=== PATIENT | female | born 1960 | race Caucasian/White ===

== ENCOUNTER 2022-10-12 08:00 | Outpatient (AMB) | payer BC, SELFPAY ==
--- NOTE | 2022-10-12 08:10 | MHC.OFFVIS ---
Intake Vital Signs 10/12/22 08:11 Height 5 ft 6 in Weight 155 lb 8 oz BMI 25.1 BP 130/90 H Blood Pressure Location Rt brachial Position Sitting Pulse 96 Pulse Source Pulse Oximeter Pulse Oximetry (%) 99 Oxygen Delivery Method Room Air Intake Visit Reasons: NPV-Essential Tremor-lvm Intake Note: Pt presents to the office today for a NPV for tremors. Pt states she has a tremor in her right thumb. She states she saw a neurologist in 2021 and states she was diagnosed with Parkinsons. Pt states she improved without medications and then had a Malu scan which was negative for parkinsons so she is here to get a second opinion. She states her tremor comes and goes. She states it can be gone for a few weeks and then sometimes happen for a week at a time. Allergies hydrochlorothiazide Allergy (Unknown, Verified 10/12/22 08:13) Unknown itraconazole [From Sporanox] Allergy (Unknown, Verified 10/12/22 08:13) Unknown tramadol [From Ultram] Allergy (Unknown, Verified 10/12/22 08:13) Unknown Medication List - Last Reconciled 10/12/22 by Meka Amin MD amlodipine 10 mg PO DAILY losartan 50 mg PO DAILY HPI HPI Comments History of Present Illness Details 62y/o right handed female comes for evaluation of tremors. SHe started noticing tremors in her right thumb in July 2020.It is intermittent and mild and she has not noticed any worsening. The tremors are always at rest. She feels like her right hand is stiffer. she had carpal tunnel release in both hands and has not completely resolved. Her hand writing has worsened. No change in speech or drooling. No difficulty in using utensils, dressing, showering. No change in gait. No balance issues. She has some word finding difficulty SHe has fh/o dementia - brother 76 with dementia ( alcoholic) sister has bipolar, mother with dementia. Her sleep has worsened, due to neck issues . No acting out dreams .she has snoring, difficulty falling asleep and staying asleep , daytime sleepiness. She has mild depression on medications.she is motivated. No hallucinations. No difficulty turning in bed.she has trouble with her vision she has h/o migraines and has 1 migraine /month lasting 5 days. she had MRI brain which showed some white matter changes. MALU scan negative as per Dr. Barclay note. [facility] Medical History Cervicalgia Coarse tremors Depression HTN (hypertension) Hyperlipidemia Insomnia Snoring Surgical History History of ankle surgery History of fusion of cervical spine History of knee surgery History of partial hysterectomy Hx of partial nephrectomy Family History Father Alcoholism Myocardial infarction Bipolar disorder Brother Alcoholism Sister Bipolar 1 disorder Social History Household Members: Spouse Housing: House Alcohol intake: current Alcohol intake frequency: a few times a week Alcohol type: wine and hard liquor Patient Tobacco Use Status: Never used Tobacco service: No Current occupational status: employed 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 Review of Systems Eyes Reports blurry vision ENT Reports no additional complaints and Reports neck pain Musc Reports neck pain Neuro Reports tremor(s) Psych Reports depression Physical Exam Vital Signs: Last Vital Signs Pulse 96 10/12/22 08:11 BP 130/90 H 10/12/22 08:11 Pulse Ox 99 10/12/22 08:11 Oxygen Delivery Method Room Air 10/12/22 08:11 BMI result Body Mass Index 25.1 Const General: cooperative, healthy appearing, comfortable and no acute distress Nutritional Appearance: average body habitus Orientation/consciousness: patient oriented x3 Limitations: no limitations Eyes Pupils: Equal, round and reactive pupils present Neck Neck: Yes no meningeal signs Neuro Other: Normal facial expression and blink Video- patient brought her video which showed mild right thumb rest tremors General: patient oriented x3, gait normal, tone normal, moves all extremities, no meningeal signs and no focal motor deficits Cranial nerves: Yes Facial sensation intact/muscles of mastication intact, Yes Equal, round and reactive pupils present, Yes Nystagmus not present and Yes Normal facial strength present Cognition (Neuro): normal cognition Gait exam (Neuro): Normal gait present Motor exam (neuro): 5/5 motor strength present throughout and Normal motor muscle tone present throughout Deep tendon reflexes (DTR's): Right triceps reflex intensity grade: 1+, Left triceps reflex intensity grade: 1+, Rt Biceps (C5, C6): 1+, Left biceps reflex intensity grade: 1+, Right brachioradialis reflex intensity grade: 1+, Left brachioradialis reflex intensity grade: 1+, Right patellar reflex intensity grade: 1+ and Left patellar reflex intensity grade: 1+ Coordination: [id number] test normal Psych Appearance: grossly normal Assessment & Plan Assessment & Plan (1) Coarse tremors: Comment: mild and intermittent Code(s): G25.2 - Other specified forms of tremor (2) Snoring: Code(s): R06.83 - Snoring (3) Insomnia: Code(s): G47.00 - Insomnia, unspecified Plan No evidence of Parkinsons on todays exam . MALU negative, I will follow her up clinically Continue exercise Discussed sleep hygiene to improve insomnia and will do home sleep test to r/o sleep apnea. Orders: Orders RT home sleep study Today G47.00 - Insomnia, unspecified, R06.83 - Snoring Coding Level of Care Code New Pt Level 4 (67406) Diagnoses Coarse tremors G25.2 Snoring R06.83 Insomnia G47.00
[2022-10-12 08:11] VITALS: BP 130/90; PULSE 96; O2SAT 99; BMI 25.1
== END 2022-10-12 08:47 | disposition home or self-care (01) ==
PROVIDERS: Visit Provider Psychiatry & Neurology Neurology
DX: G25.2 Other specified forms of tremor (principal); R06.83 Snoring; G47.00 Insomnia, unspecified
CPT/HCPCS: 99204

== ENCOUNTER → 2022-10-12 08:00 | Outpatient (BNVA) | payer BC, SELFPAY | PROVIDERS: Visit Provider Psychiatry & Neurology Neurology ==

== ENCOUNTER → 2022-10-28 12:53 | Outpatient (REF) | payer BC, SELFPAY | LOC: HO.SL 12:53 | PROVIDERS: Visit Provider Psychiatry & Neurology Neurology | DX: G47.00 Insomnia, unspecified (principal); R06.83 Snoring; R40.0 Somnolence | CPT/HCPCS: 95806 ==

== ENCOUNTER → 2022-10-28 13:32 | Outpatient (BNV) | payer BC, SELFPAY | PROVIDERS: Visit Provider Psychiatry & Neurology Neurology | DX: R06.83 Snoring (principal) | CPT/HCPCS: 95806 ==

== ENCOUNTER 2023-12-21 12:52 | Outpatient (AMB) | payer MEDICARE, SELFPAY ==
--- NOTE | 2023-12-21 12:54 | MHC.OFFVIS ---
Vital Signs 12/21/23 12:58 Height 5 ft 6 in Weight 164 lb BMI 26.5 BP 106/78 Blood Pressure Location Rt brachial Position Sitting Pulse 76 Pulse Source Pulse Oximeter Pulse Oximetry (%) 98 Oxygen Delivery Method Room Air Intake Visit Reasons: 1yr follow up Essential Tremor/Migraines Intake Note: Patient presents for 1 year follow up tremors and migraines patient tremors the same come and go. headaches are every day they're not migrianes just headaches. Allergies hydrochlorothiazide Allergy (Unknown, Verified 12/21/23 13:00) Unknown itraconazole [From Sporanox] Allergy (Unknown, Verified 12/21/23 13:00) Unknown tramadol [From Ultram] Allergy (Unknown, Verified 12/21/23 13:00) Unknown Medication List - Last Reconciled 12/21/23 by Meka Amin MD amlodipine 10 mg PO DAILY losartan 50 mg PO DAILY multivitamin 1 tab PO DAILY HPI Comments Details: 63 year old female with Migraines and Parkinsonian- like tremors of the hand, one year follow up. She has migraines which have been lasting for 4-5 days per month, start at the frontal area and bilaterally temporal then migrates. Cervicogeni headaches to the trapezius, she uses Flexiril PRN. Denies nausea, vomiting, balance, gait issues and falls. Endorses sensitivity to light and noise, but not smells. Her sleep is good goes to bed at 9pm wakes up at 4am and stays up or reads until 8am, feels well in the morning. Denies brain fog, forgetfulness, or any memory issues, denies speech or swallowing difficulties. She wears a mouth-gaurd at night and notices some drooling at night. She did have a spinal fusion of the C5,6, and 7 vertebrae and continues to have a stiff neck in the AM. She has tingling in arms, muscle strain like pain, couple of times L>R. She continues to notice the tremor in her R. Thumb, only when she is more stressed. Has a h/o family with dementia, brother, mother and grandmother. Denies, RLS, Parasomnias, sleep behaviors. She has hot flashes 2-times a week, she pushes the sheets off and is fine. MALU scan Dec 2021, did not rule in Parkinsonion. MRI 2020 normal vascular changes. She does exercise 3-4 X a week at the [facility] with and lives a healthy lifestyle. PT [facility] Myofacial release MRI C spine [facility] Medical History Cervicalgia Coarse tremors Depression HTN (hypertension) Hyperlipidemia Insomnia Snoring Surgical History History of ankle surgery History of partial hysterectomy History of fusion of cervical spine History of knee surgery Hx of partial nephrectomy Family History Father Alcoholism Myocardial infarction Bipolar disorder Brother Alcoholism Sister Bipolar 1 disorder Social History Household Members: Spouse Housing: House Alcohol intake: current Alcohol intake frequency: a few times a week Alcohol type: wine and hard liquor Patient Tobacco Use Status: Never used Tobacco service: No Current occupational status: employed 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 Review of Systems Const Reports as per HPI Physical Exam Vital Signs: Last Vital Signs Pulse 76 12/21/23 12:58 BP 106/78 12/21/23 12:58 Pulse Ox 98 12/21/23 12:58 Oxygen Delivery Method Room Air 12/21/23 12:58 BMI result Body Mass Index 26.5 Const General: cooperative, comfortable and no acute distress Nutritional Appearance: average body habitus Orientation/consciousness: patient oriented x3 HEENT Head: Yes normal to inspection Face and sinus: Yes normal facial exam and Yes face symmetric Eyes Pupils: Equal, round and reactive pupils present, Pupils normal by confrontation and Pupil accommodation reflex normal Neck Neck: Yes other (Limited ROM on flexion, and extension. Extending neck releases tightness.) Resp Effort & Inspection: normal respiratory effort and able to speak in complete sentences Back/Spine/Pelvis Cervical Spine: cervical ROM normal (Difficulty in turning the head to the left and right.) Neuro General: patient oriented x3 and moves all extremities Cranial nerves: Yes CN's II-XII intact bilaterally, Yes Equal, round and reactive pupils present, Yes Normal facial strength present, Yes Midline tongue present, Yes Ability to bilaterally rotate head present (Rotating the head laterally is painful, with limited ROM.) and Yes Ability to bilaterally elevate shoulders present Gait exam (Neuro): Normal gait present Motor exam (neuro): 5/5 motor strength present throughout Deep tendon reflexes (DTR's): Right triceps reflex intensity grade: 2+, Left triceps reflex intensity grade: 2+, Rt Biceps (C5, C6): 2+, Left biceps reflex intensity grade: 2+, Right brachioradialis reflex intensity grade: 2+, Left brachioradialis reflex intensity grade: 2+, Right patellar reflex intensity grade: 2+, Left patellar reflex intensity grade: 2+, Right ankle reflex intensity grade: 2+ and Left ankle reflex intensity grade: 2+ Coordination: [id number] test normal, rapid alternating movements of the distal upper extremity normal and rapid alternating movements of the distal lower extremity normal Psych Appearance: grossly normal Affect: normal affect Attitude: cooperative Insight: Good insight present (Psych) Judgement: Good judgement present (Psych) Assessment & Plan Assessment & Plan (1) Cervicalgia: Code(s): M54.2 - Cervicalgia Category: Medical Plan: MRI C- Spine patient continues to have daily headaches with migraines. (2) Migraine headache without aura: Code(s): G43.009 - Migraine without aura, not intractable, without status migrainosus Category: Medical Qualifiers: Status migrainosus presence: without status migrainosus Plan Patient Education: Good sleep hygiene, no devices in bed, gentle night time yoga, warm teas, diffusing essential oils. Listening to calming music reading. Limiting Caffeine 6 hours prior to bedtime. Magnesium 400 mg at bedtime can also be relaxing. No evidence of parkinsonism on todays exam Orders: Orders MR cervical spine wo con 12/21/23 M54.2 - Cervicalgia PT Evaluation and Treatment 12/21/23 M54.2 - Cervicalgia Coding Level of Care Code Est Pt Level 4 (96716) Complex EM visit Add On G2211 Diagnoses Cervicalgia M54.2 Migraine headache without aura G43.009 Status migrainosus presence: without status migrainosus
[2023-12-21 12:58] VITALS: BP 106/78; PULSE 76; O2SAT 98; BMI 26.5
== END 2023-12-21 13:37 | disposition home or self-care (01) ==
LOC: HO.HSMS 12:52
PROVIDERS: PCP Psychiatry & Neurology Neurology; Visit Provider Psychiatry & Neurology Neurology
DX: M54.2 Cervicalgia (principal); G43.009 Migraine without aura, not intractable, without status migrainosus
CPT/HCPCS: 99214; G2211

== ENCOUNTER → 2023-12-21 12:52 | Outpatient (BNVA) | payer MEDICARE, SELFPAY | PROVIDERS: PCP Psychiatry & Neurology Neurology; Visit Provider Psychiatry & Neurology Neurology | DX: M54.2 Cervicalgia (principal); G43.009 Migraine without aura, not intractable, without status migrainosus | CPT/HCPCS: 99212 ==

== ENCOUNTER 2024-10-02 15:15 | Outpatient (REF) | payer MEDICARE, SELFPAY ==
[2024-10-17 08:58] LABS: Apolipoprotein E Genotype E3/E4
== END 2024-10-02 15:16 | disposition home or self-care (01) ==
LOC: HO.HKASLDS 15:15
PROVIDERS: PCP Family Medicine; Visit Provider Psychiatry & Neurology Neurology
DX: G43.719 Chronic migraine without aura, intractable, without status migrainosus (principal); M54.2 Cervicalgia; Z81.8 Family history of other mental and behavioral disorders; Z79.899 Other long term (current) drug therapy
CPT/HCPCS: 36415; 82542; 99212

== ENCOUNTER 2024-10-02 15:15 | Outpatient (AMB) | payer MEDICARE, SELFPAY ==
--- NOTE | 2024-10-02 15:16 | MHC.OFFVIS ---
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 Accompanied by: Self / Same As Patient Allergies hydrochlorothiazide Allergy (Unknown, Verified 10/02/24 15:19) Unknown itraconazole (From Sporanox) Allergy (Unknown, Verified 10/02/24 15:19) Unknown tramadol (From Ultram) Allergy (Unknown, Verified 10/02/24 15:19) Unknown Medication List - Last Reconciled 10/02/24 by Meka Amin MD amlodipine 10 mg PO DAILY cyclobenzaprine 5 mg PO BEDTIME losartan 50 mg PO DAILY magnesium aspart,citrate,oxide mg PO multivitamin 1 tab PO DAILY sumatriptan succinate take 1 tab at onset of headache; if no relief may repeat 1 tab after at least 2 hrs; max = 4 tabs/24 hr PO topiramate 25 mg PO .qhs HPI Comments Details: 64 year old female with Migraines and tremors comes for follow up. she has daily headaches and PT did not help.Her headaches are unitemporal , pressure , rare nausea , light and noise sensitivity , no visual aura .she wakes up with migraines sometimes .It can last 1- 3days .she has 5-6 headaches a week No change in tremors she is concerned about dementia in family History from initial visit- She has migraines which have been lasting for 4-5 days per month, start at the frontal area and bilaterally temporal then migrates to the trapezius, she uses Flexiril PRN. Denies nausea, vomiting, balance, gait issues and falls. Endorses sensitivity to light and noise, but not smells. Her sleep is good goes to bed at 9pm wakes up at 4am and stays up or reads until 8am, feels well in the morning. Denies brain fog, forgetfulness, or any memory issues, denies speech or swallowing difficulties. She wears a mouth-gaurd at night and notices some drooling at night. She did have a spinal fusion of the C5,6, and 7 vertebrae and continues to have a stiff neck in the AM. She has tingling in arms, muscle strain like pain, couple of times L>R. She continues to notice the tremor in her R. Thumb, only when she is more stressed. Has a h/o family with dementia, brother, mother and grandmother. Denies, RLS, Parasomnias, sleep behaviors. She has hot flashes 2-times a week, she pushes the sheets off and is fine. MALU scan Dec 2021, did not rule in Parkinsonion. MRI 2020 normal vascular changes. She does exercise 3-4 X a week at the [facility] with and lives a healthy lifestyle. PT [facility] Myofacial release MRI C spine [facility] Medical History Family history of senile dementia Chronic migraine without aura Hyperlipidemia Coarse tremors Cervicalgia Depression HTN (hypertension) Insomnia Snoring Surgical History History of ankle surgery History of partial hysterectomy History of fusion of cervical spine History of knee surgery Hx of partial nephrectomy Family History Father Alcoholism Myocardial infarction Bipolar disorder Brother Alcoholism Sister Bipolar 1 disorder Social History Household Members: Spouse Housing: House Alcohol intake: current Alcohol intake frequency: a few times a week Alcohol type: wine and hard liquor Patient Tobacco Use Status: Never used Tobacco service: No Current occupational status: employed 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 Physical Exam Vital Signs: Last Vital Signs Pulse 74 10/02/24 15:17 BP 142/86 H 10/02/24 15:17 Pulse Ox 98 10/02/24 15:17 Oxygen Delivery Method Room Air 10/02/24 15:17 BMI result Body Mass Index 26.3 Const General: cooperative, comfortable and no acute distress Nutritional Appearance: average body habitus Orientation/consciousness: patient oriented x3 HEENT Head: Yes normal to inspection Face and sinus: Yes normal facial exam and Yes face symmetric Eyes Pupils: Equal, round and reactive pupils present, Pupils normal by confrontation and Pupil accommodation reflex normal Neck Neck: Yes other (Limited ROM on flexion, and extension. Extending neck releases tightness.) Back/Spine/Pelvis Cervical Spine: cervical ROM normal (Difficulty in turning the head to the left and right.) Neuro General: patient oriented x3 and moves all extremities Cranial nerves: Yes CN's II-XII intact bilaterally, Yes Equal, round and reactive pupils present, Yes Normal facial strength present, Yes Midline tongue present, Yes Ability to bilaterally rotate head present (Rotating the head laterally is painful, with limited ROM.) and Yes Ability to bilaterally elevate shoulders present Gait exam (Neuro): Normal gait present Coordination: [id number] test normal, rapid alternating movements of the distal upper extremity normal and rapid alternating movements of the distal lower extremity normal Assessment & Plan Assessment & Plan (1) Chronic migraine without aura: Comment: Trialed verapramil Ibuprofen excedrin Code(s): G43.709 - Chronic migraine without aura, not intractable, without status migrainosus Category: Medical Qualifiers: Status migrainosus presence: without status migrainosus Intractability: intractable Qualified Code(s): G43.719 - Chronic migraine without aura, intractable, without status migrainosus (2) Cervicalgia: Code(s): M54.2 - Cervicalgia Category: Medical Plan: MRI C- Spine patient continues to have daily headaches with migraines. Plan Trial topiramate 25mg qhs Sumatriptan 50mg as needed for migraines and repeat in 2hrs for a maximum of 200mg /day Cyclobenzaprine 5 mg qhs Magnesium 400 mg at bedtime can also be relaxing. No evidence of parkinsonism on todays exam Orders: Orders Other Ref Test [place] [facility] [place] Z81.8 - Family history of other mental and behavioral disorders Medications: New cyclobenzaprine 5 mg PO BEDTIME 30 tabs 0RF topiramate 25 mg PO .qhs 30 caps 6RF sumatriptan succinate take 1 tab at onset of headache; if no relief may repeat 1 tab after at least 2 hrs; max = 4 tabs/24 hr PO 14 tabs 6RF Coding Level of Care Code Est Pt Level 4 (15598) Complex EM visit Add On G2211 Diagnoses Intractable chronic migraine without aura and without status migrainosus G43.719 Status migrainosus presence: without status migrainosus Intractability: intractable Cervicalgia M54.2
[2024-10-02 15:17] VITALS: BP 142/86; PULSE 74; O2SAT 98; BMI 26.3
--- OUTSIDE RECORDS SUMMARY | 2024-10-02 15:49 | XMS_ITS | Clinical Summary ---
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 Active amLODIPine (NORVASC) 10 MG tablet Take 10 mg by mouth daily. Active losartan (COZAAR) 50 MG tablet Take 50 mg by mouth daily. Active Active Problems Problem Noted Date Diagnosed Date History of renal cell carcinoma 12/21/2019 Chronic neck pain 12/21/2019 Overview (12/21/2019): 3 cervical discs fused in neck Has had injections in the past Uses muscle relaxer about once a week because of this Family history of malignant neoplasm of breast 1 03/24/2014 Overview (02/26/2023): also MGM and maternal aunt Overview: also MGM and maternal aunt Overview: also MGM and maternal aunt also MGM and maternal aunt S/p nephrectomy 04/09/2011 Mixed hyperlipidemia 10/14/2009 Benign essential hypertension 07/12/2009 Headache disorder 02/09/2008 Migraine 02/09/2008 Immunizations Immunization Administration Dates Next Due COVID-19 (Pre-12/07) Pfizer Vaccine, mRNA, PF 11/10/2021,05/22/2020,04/26/2020 COVID-19, Unspecified Formulation 11/17/2022 [id number] FORMULATION 02/04/2009 INFLUENZA, SPLIT VIRUS, TRIVALENT PF 10/27/2015 INFLUENZA, SPLIT VIRUS, TRIV ALENT W/ PRESERVATIVE IM 11/12/2016,11/13/2014,11/04/2013,2012,10/05/2011,11/29/2010 Influenza Quadrivalent MDCK Preservative Free IM 11/17/2022,11/10/2021 Influenza Quadrivalent Prese rvative Free IM 11/07/2020,11/12/2018,11/16/2017 Influenza, Unspecified Formulation 11/04,11/12/2016,10/27/2015,2014,11/04/2013,11/19/2012,10/05/2011,1 ,02/12/2010,01/01/2009 RSV Vaccine (monovalent, adjuvanted) 11/26/2022 Td (adult),2 Lf Tetanus Toxo id, PF, Adsorbed 10/22/2021 Tdap 12/09/2011 Zoster recombinant 01/30/2019,11/22/2018 Family History Medical History Relation Comments Alzheimer's disease Brother alcoholic as well OCD Spectrum disorder Brother Coronary artery disease Father 2 massiv e MIs at 48, then lived another 10 yrs Breast cancer Maternal Aunt Dementia Maternal Grandfather Breast cancer Maternal Grandmother Dementia Maternal Grandmother Breast cancer Mother Dementia Mother Breast cancer Paternal Aunt Bipolar disorder Sister Colon cancer Neg Hx Pancreatic cancer Neg Hx Relation Status Comments Brother Alive Daughter 1 Alive Daughter 2 Alive Father (Age 58) Maternal Aunt Maternal Grandfather Maternal Grandmother Mother (Age 93) Paternal Aunt Sister Alive Social History Tobacco Use Types Packs/Day Years Used Date Smoking Tobacco: Never Smokeless Tobacco: Never Tobacco Cessation:Counseling Given: Not Answered Alcohol Use Standard Drinks/Week Comments Yes 5 (1 standard drink = 0.6 oz pur e alcohol) Education Answer Date Recorded Are you interested in more education? Not on hero e 06/12/2022 Are you concerned about learning? Not on file 06/12/2022 No 06/12/2022 No 06/12/2022 Digital Access Answer Date Recorded No 07/11/2022 No 07/11/2022 Reliable internet access at home? Not on file 07/11/2022 Device with a working camera? Not on file Comments No Sex and Gender Information Value Date Recorded Sex Assigned at Female 12/15/2019 2:11 PM EDT Legal Sex Female 3:15 PM EDT Gender Identity Female 12/15/2019 2:11 PM EDT Sexual Orientation Straight 12/15/2019 2: 11 PM EDT Last Filed Vital Signs Vital Sign Reading Time Taken Comments Blood Pressure 109/75 09/05/2023 3:48 PM EDT Pulse 95 09/05/2023 3:48 PM EDT Temperature 36.8 C (98.3 F) 09/05/2023 3:48 PM EDT Respiratory Rate 16 09/05/2023 3:48 PM EDT Oxygen Saturation 99% 09/05/2023 3:48 PM EDT Inhaled Oxygen Concentration - - Weight 74.8 kg (165 lb) 02/26/2023 10:04 AM EST Height 167.2 cm (5' 5.84 ) 12/15/2019 2:12 PM ED T Body Mass Index 26.76 12/15/2019 2:12 PM EDT Plan of Treatment Upcoming Encounters Date Type Department Care Team (Late st Contact Info) Description 02/07/2025 9:15 AM EST Appointment [facility], [facility] Density - [address] [address] [address], [address] [place], [place] [id number] Health Maintenance Due Date Last Done Comments CREATININE LEVEL 1959 LIPID PANEL 1959 POTASSIUM LEVEL 1959 DEPRESSION SCREENING 1971 HEPATITIS C SCREENING 1977 HIV ONE-TIME SCREENING (18-65 YEARS) 1977 SCREENING FOR DIABETES 1994 COLOGUARD 01/03/2004 COLONOSCOPY 01/03/2004 COLORECTAL CANCER SCREENING 01/03/2004 FIT TEST 01/03/2004 FOBT 01/03/2004 SIGMOIDOSCOPY 01/03/2004 VIRTUAL COLONOSCOPY 01/03/2004 PNEUMOCOCCAL VACCINES (50+ years) (1 of 1 - PCV) 2009 MAMMOGRAM 03/24/2021 03/24/2019 COVID-19 VACCINE ( season) 2023 11/17/2022, 11/17/2022, 11/10/2021, Additional history exists OSTEOPOROSIS SCREENING INITIAL (ONE-TIME) 01/03/2024 BLOOD PRESSURE 03/07/2024 09/05/2023 Adult Td,Tdap Booster 10/23/2031 10/22/2021, 012 ZOSTER VACCINES Completed 01/30/2019, 11/22/2018 RSV VACCINE Completed 11/26/2022 SMOKING STATUS SCREENING (Once After 26 Yrs) Completed 02/26/2023 HEPATITIS A VACCINES Aged Out No long er eligible based on patient's age to complete this topic HIB VACCINES Aged Out No longer eligi ble based on patient's age to complete this topic MENINGOCOCCAL VACCINES (ACWY) Aged Out No longer eligible based on patient's age to complete this topic MENINGOCOCCAL VACCINES (B) Aged Out N o longer eligible based on patient's age to complete this topic Medical Devices Not on file Insurance MEDICARE PART A & B [employer] MEDICARE POS PPO REPLACEMENT MEDICARE PART A & [place] [address] [place] [address] MEDICARE POS PPO REPLACEMENT MEDICARE PART A & B [facility] MEDICARE POS PPO REPLACEMENT MEDICARE PART A & B [id number] [employer] [place] MEDIC[place] POS PPO REPLACEMENT MEDICARE PART A & B [facility] MEDICARE POS PPO REPLACEMENT MEDICARE PART A & B [facility] MEDICARE POS PPO REPLACEMENT Care Teams Blanking Press Operator Relationship Specialty Start Date End Date Birgit Caraballo MD, MPH [address] [place] [address] [email or web address] PCP - General Family Medicine 02/24/23 Additional Source Comments The information contained in this document represents components of the legal health record. It is not the complete legal health record.[facility]
== END 2024-10-02 15:51 | disposition home or self-care (01) ==
LOC: HO.HSMS 15:15
PROVIDERS: PCP Family Medicine; Visit Provider Psychiatry & Neurology Neurology
DX: G43.719 Chronic migraine without aura, intractable, without status migrainosus (principal); M54.2 Cervicalgia
CPT/HCPCS: 99214; G2211